=== PATIENT | female | born 1995 | race African-American/Black ===

== ENCOUNTER 2017-09-07 18:09 | Emergency (ER) | payer BC, OTHER ==
[~2017-09-07] VITALS: Ht 162.6 cm; Wt 66.7 kg
[2017-09-07 18:13] VITALS: TEMP 36.7; Ht 162.6 cm; Wt 66.7 kg
[2017-09-07 18:43] VITALS: O2SAT 98
--- NOTE | 2017-09-07 18:59 | EMERGENCY ROOM VISIT NOTE ---
History Report prepared by Kaitlin: Daxa Johnson Under the Supervision of: Dr. Toy Aggarwal M.D. First contact with patient: 18:17 Chief Complaint: DIZZY Stated Complaint: LIGHTHEADED,FEELING SICK (COLD SYMPTOMS) Nursing Triage Summary: Pt c/o states she almost fell in shower because she felt lightheaded and injured her right wrist, "but it's not bad" Took antibiotics last week for flu like symptoms. History of Present Illness The patient is a 22 year old female with no past medical history who presents to the ED with a cc of an episode of dizziness beginning four hours ago. The patient sates that the episode came on after being in a hot shower for 15 minutes. Positive lightheadedness, inability to focus, recent stress, and recent travel home to [place] for break. She states that she was almost hit by a car before a test yesterday and is stressed with finals approaching. Negative for falling, this ever happening before, her heart racing, use of control, cough, abnormal eating/drinking behavior, urinary symptoms, diarrhea, melena, hematochezia, vaginal bleeding, vaginal discharge, abdominal pain, and congestion. The patient notes that she was recently very sick over and was placed on antibiotics that she finished 4 days ago. She states that her LNMP was 3 weeks ago. Source of History: patient Onset: four hours ago Position: other (global) Quality: other (global) Timing: other (episode) Associated Symptoms: No cough, No abdominal pain, No melena, No hematochezia , No diarrhea, No urinary symptoms Note: The patient complains of lightheadedness, inability to focus, and increased stress. The patient denies her heart racing, abnormal eating/drinking behavior, vaginal bleeding, vaginal discharge, and congestion. Review of Systems See HPI for pertinent positives and negatives. A total of ten systems were reviewed and were otherwise negative. Past Medical & Surgical Surgical Problems: (1) Hx of foot surgery Family History Patient reports no known family medical history. Social History Smoking Status: Never Smoker Smokeless Tobacco Use: No Alcohol Use: occasionally Drug Use: none Marital Status: single Housing Status: lives with roommate Occupation Status: student Current/Historical Medications No Active Prescriptions or Reported Meds Allergies Coded Allergies: No Known Allergies (Unverified , 07/12/16) Physical Exam Vital Signs Date Time Temp Pulse Resp B/P (MAP) Pulse Ox O2 Delivery O2 Flow Rate FiO2 09/07/17 19:50 55 18 101/61 97 Room Air 09/07/17 18:54 73 09/07/17 18:43 52 16 112/58 68 115/68 87 115/73 09/07/17 18:43 98 Room Air 09/07/17 18:13 36.7 58 16 116/78 99 Room Air Physical Exam GENERAL: Awake, alert, well-appearing, NAD HENT: Normocephalic, atraumatic. EYES: Normal conjunctiva. Sclera non-icteric. NECK: Supple. No nuchal rigidity. FROM. RESPIRATORY: CTAB, no rhonchi, wheezing, crackles CARDIAC: RRR, no MRG ABDOMEN: Soft, NTND, BS+ MSK: No chest wall TTP, no LE edema, incisional scars that are well healed over the medial aspect of the foot NEURO: GCS 15, CN 2-12 intact, moves all 4s on command SKIN: No rash or jaundice noted. Medical Decision & Procedures ER Provider Diagnostic Interpretation: Radiology results as stated below per my review and radiologist interpretation: CHEST ONE VIEW PORTABLE HISTORY: 22 years-old Female EVALUATE WEAKNESS acute weakness with lightheadedness COMPARISON: Chest radiograph 07/12/2016 TECHNIQUE: Portable AP view of the chest FINDINGS: Cardiomediastinal and hilar silhouettes are within normal limits. There is no pneumothorax, pleural effusion, focal airspace consolidation or overt pulmonary edema. The bones of the chest are grossly intact. IMPRESSION: No acute cardiopulmonary process. The above report was generated using voice recognition software. It may contain grammatical, syntax or spelling errors. Electronically signed by: Florentin Whiting M.D. 09/07/2017 6:56 PM Dictated Date/Time: 09/07/2017 6:56 PM Laboratory Results 09/07/17 18:35 Red Blood Count 4.10, Mean Corpuscular Volume 90.0, Mean Corpuscular Hemoglobin 30.2, Mean Corpuscular Hemoglobin Concent 33.6, Mean Platelet Volume 10.2, Neutrophils (%) (Auto) 53.9, Lymphocytes (%) (Auto) 34.7, Monocytes (%) (Auto) 9.7, Eosinophils (%) (Auto) 0.9, Basophils (%) (Auto) 0.7, Neutrophils # (Auto) 3.71, Lymphocytes # (Auto) 2.39, Monocytes # (Auto) 0.67, Eosinophils # (Auto) 0.06, Basophils # (Auto) 0.05 09/07/17 18:35 Test 09/07/17 18:35 White Blood Count 6.89 K/uL (4.8-10.8) Red Blood Count 4.10 M/uL (4.2-5.4) Hemoglobin 12.4 g/dL (12.0-16.0) Hematocrit 36.9 % (37-47) Mean Corpuscular Volume 90.0 fL (80-100) Mean Corpuscular Hemoglobin 30.2 pg (25-34) Mean Corpuscular Hemoglobin Concent 33.6 g/dl (32-36) Platelet Count 411 K/uL (130-400) Mean Platelet Volume 10.2 fL (7.4-10.4) Neutrophils (%) (Auto) 53.9 % Lymphocytes (%) (Auto) 34.7 % Monocytes (%) (Auto) 9.7 % Eosinophils (%) (Auto) 0.9 % Basophils (%) (Auto) 0.7 % Neutrophils # (Auto) 3.71 K/uL (1.4-6.5) Lymphocytes # (Auto) 2.39 K/uL (1.2-3.4) Monocytes # (Auto) 0.67 K/uL (0.11-0.59) Eosinophils # (Auto) 0.06 K/uL (0-0.5) Basophils # (Auto) 0.05 K/uL (0-0.2) RDW Standard Deviation 45.4 fL (36.4-46.3) RDW Coefficient of Variation 13.8 % (11.5-14.5) Immature Granulocyte % (Auto) 0.1 % Immature Granulocyte # (Auto) 0.01 K/uL (0.00-0.02) Urine Color YELLOW Urine Appearance CLEAR (CLEAR) Urine pH 5.5 (4.5-7.5) Urine Specific Porter 1.018 (1.000-1.030) Urine Protein NEG (NEG) Urine Glucose (UA) NEG (NEG) Urine Ketones NEG (NEG) Urine Occult Blood NEG (NEG) Urine Nitrite NEG (NEG) Urine Bilirubin NEG (NEG) Urine Urobilinogen NEG (NEG) Urine Leukocyte Esterase NEG (NEG) Anion Gap 8.0 mmol/L (3-11) Est Creatinine Clear Calc Drug Dose 89.0 ml/min Estimated GFR () 100.5 Estimated GFR (Non- 86.7 BUN/Creatinine Ratio 15.3 (10-20) Calcium Level 8.9 mg/dl (8.5-10.1) Magnesium Level 2.0 mg/dl (1.8-2.4) Total Bilirubin 0.4 mg/dl (0.2-1) Direct Bilirubin mg/dl (0-0.2) Aspartate Amino Transf (AST/SGOT) 19 U/L (15-37) Alanine Aminotransferase (ALT/SGPT) 19 U/L (12-78) Alkaline Phosphatase 79 U/L (45-117) Total Protein 7.7 gm/dl (6.4-8.2) Albumin 3.5 gm/dl (3.4-5.0) Thyroid Stimulating Hormone (TSH) 1.300 uIu/ml (0.300-4.500) Chemistry Specimen Hemolysis Laboratory results reviewed by me ECG Indication: other (dizziness) Rate (beats per minute): 57 Rhythm: sinus bradycardia Findings: T-wave inversion (V2), other (normal intervals, no other STS or TWI) ED Course 1821: The patient was evaluated in room C4. A complete history and physical exam was performed. 2004: I reevaluated the patient and she was feeling better. Discussed results and discharge instructions: She verbalized understanding and agreement. The patient is ready for discharge. Medical Decision The patient is a 22 year old female with no past medical history who presents to the ED with a cc of an episode of dizziness beginning four hours ago. Etiologies such as benign positional vertigo, dehydration, hypovolemia, anemia, tumor, infection, hypoglycemia, electrolyte abnormalities, cardiac sources, intracerebral event, toxicologic, neurologic, as well as others were entertained. Patient was seen and evaluated the bedside. Patient did complain of some mild dizziness but had no true syncope. Patient denies any palpitations or warmth. Patient did say that she did get dizzy while in the shower. She states it was a hot shower. Patient states he was 50 minutes after entering the shower. Patient does state that she has some increased stress related to school and final exams. Patient denies any alcohol or tobacco use. Patient denies any drug use. Patient denies taking any blood thinning medications. Patient has no known family history of arrhythmias or heart disease inn her siblings and her parents. Patient denies any chest pain, shortness of breath, lower extremity swelling, history of DVT or PE. Patient has a fairly unremarkable neurologic exam. Patient did have an EKG and blood work completed. Patient also had a urinalysis sent. Urinalysis is negative for blood and infection. Patient's EKG does not show any acute arrhythmia. Patient's blood work is fairly unremarkable and patient has normal hgb and platelet tracely elevated at 411K. Patient denies any abnormal or prolonged or heavy vaginal bleeding. Patient denies any vaginal bleeding at present. Patient has normal kidney function and no elevations in LFTs and lipase. Chest x-ray is negative. This may be somewhat related to stress or a transient change in blood pressure given the hot shower. Patient also does complain of some increased stress however unsure as to this contributory. Patient currently looks well and did tolerate 2 glasses of water while she was here. Believe the patient is suitable for outpatient follow-up and discharge. Patient told she can follow up with her primary care physician while at home in [place] over the winter break. Patient was told to return if she had any worsening symptoms. Patient was agreeable plan of care. Patient was given strict follow-up, discharge, and return precautions. All questions were answered. Patient was deemed suitable for outpatient follow-up at this time. Patient agreed with the plan of care and was safely discharged home. Medication Reconcilliation Current Medication List: was personally reviewed by me Blood Pressure Screening Patient's blood pressure: Normal blood pressure Blood pressure disposition: Did not require urgent referral Impression Primary Impression: Lightheaded Scribe Attestation The scribe's documentation has been prepared under my direction and personally reviewed by me in its entirety. I confirm that the note above accurately reflects all work, treatment, procedures, and medical decision making performed by me. Departure Information Dispostion Home / Self-Care Prescriptions No Active Prescriptions or Reported Meds Referrals No Doctor, Assigned (PCP) [facility] Forms HOME CARE DOCUMENTATION FORM, IMPORTANT VISIT INFORMATION Patient Instructions Dizziness Fainting Poss Causes, My [facility] Additional Instructions Please return to the emergency department if you have worsening or recurrent symptoms not amenable to at-home treatment. Please call for a follow-up appointment with her primary care physician. Please take your medications as prescribed. If you have other concerns and/or complaints please feel free to also call your primary care physician's office or return the ED for further evaluation, management, and treatment. Please avoid alcohol, tobacco and caffeine if able. Please also consider clear liquids. Return to continue liberal fluid hydration. You have been examined and treated today on an emergency basis only. This is not a substitute for, or an effort to provide, complete comprehensive medical care. It is impossible to recognize and treat all injuries or illnesses in a single emergency department visit. It is therefore important that you follow up closely with [facility], your PCP, and/or your specialist(s). Call as soon as possible for an appointment. Thank you for your time and consideration. I look forward to speaking with you again soon. Please don't hesitate to call us if you have any questions.
[2017-09-07 19:01] LABS: BASO % 0.7 %; BASO ABS # 0.05 K/uL (0-0.2); COMPLETE YES; EOS % 0.9 %; HEMATOCRIT 36.9 % (37-47); IG% 0.1 %; LYMPH % 34.7 %; LYMPH ABS # 2.39 K/uL (1.2-3.4); MEAN CORPUSCULAR HEMOGLOBIN 30.2 pg (25-34); MEAN CORPUSCULAR HGB CONC 33.6 g/dl (32-36); MEAN PLATELET VOLUME 10.2 fL (7.4-10.4); MONO % 9.7 %; NEUT % 53.9 %; PLATELET COUNT 411 K/uL (130-400); WHITE BLOOD COUNT 6.89 K/uL (4.8-10.8)
[2017-09-07 19:08] LABS: URINE APPEARANCE CLEAR (CLEAR); URINE BILIRUBIN NEG (NEG); URINE COLOR YELLOW; URINE NITRITE NEG (NEG); URINE PH 5.5 (4.5-7.5); URINE SPECIFIC GRAVITY 1.018 (1.000-1.030); UROBILINOGEN NEG (NEG)
[2017-09-07 19:17] LABS: MANUAL MICROSCOPIC REQUIRED? NO; REVIEW REQ? NO
[2017-09-07 19:40] LABS: ALKALINE PHOSPHATASE 79 U/L (45-117); ALT/SGPT 19 U/L (12-78); BLOOD UREA NITROGEN 14 mg/dl (7-18); BUN/CREATININE RATIO 15.3 (10-20); CALCIUM 8.9 mg/dl (8.5-10.1); CARBON DIOXIDE 24 mmol/L (21-32); CHLORIDE 105 mmol/L (98-107); CREATININE 0.94 mg/dl (0.60-1.20); GLUCOSE 85 mg/dl (70-99)
[2017-09-07 19:49] LABS: POTASSIUM 4.5 mmol/L (3.5-5.1); SODIUM 137 mmol/L (136-145)
[2017-09-07 19:50] VITALS: BP 101/61; PULSE 55; O2SAT 97
[2017-09-07 19:51] LABS: AST/SGOT 19 U/L (15-37)
== END 2017-09-07 20:21 | disposition home or self-care (01) ==
LOC: C.EDB 18:11 → C.EDC 20:21
DX: R42 Dizziness and giddiness (principal)